=== PATIENT | male | born 1965 | race Caucasian/White ===

== ENCOUNTER 2019-12-21 14:31 | Emergency (ER) | payer OTHER ==
[2019-12-21 14:40] VITALS: BP 147/88; PULSE 94; RESP 18; TEMP 97.3
[2019-12-21] MEDS ORDERED: MUPIROCIN 2% OINT 22 GM TUBE TOPICAL STA (14:57)
--- NOTE | 2019-12-21 15:33 | XR ---
EXAMINATION TYPE: XR finger RT DATE OF EXAM: 12/21/2019 COMPARISON: NONE HISTORY: Pain after injury, splinter in skin TECHNIQUE: 3 views right fifth finger. FINDINGS: No acute displaced fracture. Joint spaces preserved right fifth finger. Overlying soft tiss ue shows no suspicious radiodense foreign body. No suspicious bony destruction is seen. IMPRESSION: As above.
--- NOTE | 2019-12-21 15:40 | ED ---
General Adult HPI - General Chief complaint: Extremity Problem,Nontraumatic Stated complaint: Finger Abscess Time Seen by Provider: 12/21/19 14:50 Source: patient, RN notes reviewed, old records reviewed Mode of arrival: ambulatory Limitations: no limitations - History of Present Illness Initial comments: 54-year-old male patient brought to ED for chief complaint of pain and swelling to distal lateral aspect of right pinky. She reports that back in August he believes he got a metal splinter in his finger. Patient reports that since then he has had persistent pain, swelling over the medial aspect of the distal phalanx. Patient reports that it does become inflamed and bleed. Denies any other complaints. Patient did go to [facility] for this complaint in October, he did not complete the antibiotics and did not follow up as recommended. Systemic: Pt denies fatigue, fever/chills, rash. Pt denies weakness, night sweats, weight loss. Neuro: Pt denies headache, visual disturbances, syncope or pre-syncope. HEENT: Pt denies ocular discharge or irritation, otalgia, rhinorrhea, pharyngitis or notable lymphadenopathy. Cardiopulmonary: Pt denies chest pain, SOB, heart palpitations, dyspnea on exertion. Abdominal/GI: Pt denies abdominal pain, n/v/d. : Pt denies dysuria, burning w/ urination, frequency/urgency. Denies new onset urinary or bowel incontinence. MSK: Pt denies myalgia, loss of strength or function in extremities. Neuro: Pt denies new onset weakness, paresthesias. - Related Data Allergies Allergy/AdvReac Type Severity Reaction Status Date / Time Penicillins Allergy Dyspnea Verified 12/21/19 14:40 Review of Systems ROS Statement: Those systems with pertinent positive or pertinent negative responses have been documented in the HPI. ROS Other: All systems not noted in ROS Statement are negative. Past Medical History Additional Past Medical History / Comment(s): back pain, neck pain History of Any Multi-Drug Resistant Organisms: None Reported Additional Past Surgical History / Comment(s): lobectomy Past Psychological History: Anxiety, Depression Smoking Status: Never smoker Past Alcohol Use History: None Reported Past Drug Use History: None Reported General Exam - General Exam Comments Initial Comments: Constitutional: NAD, AOX3, Pt has pleasant affect. HEENT: NC/AT, trachea midline, neck supple, no lymphadenopathy. Posterior pharynx non erythematous, without exudates. External ears appear normal, without discharge. Mucous membranes moist. Eyes PERRLA, EOM intact. There is no scleral icterus. No pallor noted. Cardiopulmonary: RRR, no murmurs, rubs or gallops, no JVD noted. Lungs CTAB in anterior and posterior pleitez. No peripheral edema. Abdominal exam: Abdomen soft and non-distended. Abdomen non-tender to palpation in all 4 quadrants. Bowel sounds active in LLQ. No hepatosplenomegaly. No ecchymosis Neuro: CN II-XII grossly intact. No nuchal rigidity. No raccon eyes, no dumont sign, no hemotympanum. No cervical spinal tenderness. MSK: 1 x 1 cm lesion medial aspect of distal phalanx. Mild amount of erythema. No fluctuance or discharge. Full active range of motion of digit. No flexor tenderness. No percussion tenderness. No posterior calf tenderness bilaterally, homans sign negative bilaterally. Posterior tibialis and radial pulse +2 bilaterally. Sensation intact in upper and lower extremities. Full active ROM in upper and lower extremities, 5/5 stregnth. \ Limitations: no limitations Course Vital Signs 12/21/19 14:37 Temperature 97.3 F L Pulse Rate 94 Respiratory 18 Rate Blood Pressure 147/88 O2 Sat by Pulse 96 Oximetry Medical Decision Making - Medical Decision Making 54-year-old male patient brought to ED for chief complaint of pain and swelling to distal lateral aspect of right pinky. She reports that back in August he believes he got a metal splinter in his finger. Patient reports that since then he has had persistent pain, swelling over the medial aspect of the distal phalanx. Patient reports that it does become inflamed and bleed. Denies any other complaints. Patient did go to [facility] for this complaint in October, he did not complete the antibiotics and did not follow up as recommended. Patient vital signs are stable, afebrile. Physical exam displayed: 1 x 1 cm lesion medial aspect of distal phalanx. Mild amount of erythema. No fluctuance or discharge. Full active range of motion of digit. No flexor tenderness. No percussion tenderness. Plain films displayed no acute process. There are no signs of flexor tenosynovitis. Patient will be treated with topical mupirocin ointment will follow-up with primary care provider as well as orthopedic follow-up. Case discussed with Dr. June. Disposition Clinical Impression: Superficial skin infection Disposition: HOME SELF-CARE Condition: Stable Instructions (If sedation given, give patient instructions): Cellulitis (ED) Additional Instructions: Using bag as directed. Apply ointment 3 times per day for 10 days to the a ffected area. Follow-up with primary care provider and orthopedic follow-up tomorrow. Return to ER if condition worsens. Is patient prescribed a controlled substance at d/c from ED?: No Referrals: Nonstaff,Physician [Primary Care Provider] - 1-2 days Donovan Felix DO [Doctor of Osteopathic Medicine] - 1-2 days
== END 2019-12-21 16:00 | disposition home or self-care (01) ==
LOC: EC 14:31
DX: L08.9 Local infection of the skin and subcutaneous tissue, unspecified (principal); Z88.0 Allergy status to penicillin
CPT/HCPCS: 99284

== ENCOUNTER 2019-12-29 15:14 | Observation (INO) | payer OTHER ==
--- NOTE | 2019-12-29 15:39 | ED ---
Chest Pain HPI - General Chief Complaint: Chest Pain Stated Complaint: PAMELA, Chest pain Time Seen by Provider: 12/29/19 15:34 Source: patient Mode of arrival: ambulatory Limitations: no limitations - History of Present Illness Initial Comments: 54-year-old male with history of borderline diabetes previous smoker presents emergency department today for chief complaint of chest discomfort left-sided. Patient states he has left-sided chest discomfort is more of a pressure or bruise feeling. Patient states is not reproducible to movements or palpation of the chest. Patient denies any trauma to the testicles or exertional activity. Patient states initially chest he was on off all week however today became more persistent and constant. Patient denies any history of positive stress test denies any previous heart catheterizations. Patient denies any history of hypertension. Patient states he also feels slightly short of breath. Patient denies upper respiratory symptoms he denies any fevers he denies IV drug use denies any leg swelling history of active cancer or previous pulmonary embolism or DVT. Patietn denies radiation to the back, or pain with deep inspiration. Denies hemoptysis. Patient has no additional complaints. Upon arrival he does not appears in distress. Given ASA. - Related Data Home Medications Medication Instructions Recorded Confirmed traMADol HCL [Ultram] 50 mg PO BID PRN 12/29/19 12/29/19 Allergies Allergy/AdvReac Type Severity Reaction Status Date / Time Penicillins Allergy Dyspnea Verified 12/29/19 17:42 Review of Systems ROS Statement: Those systems with pertinent positive or pertinent negative responses have been documented in the HPI. ROS Other: All systems not noted in ROS Statement are negative. EKG Findings - EKG Comments: EKG Findings:: Ventricular rate 80 bpm, MN interval 144 ms, QRS ration 104 ms, QT/QTC 354/428 ms. This is normal sinus there is incomplete right bundle-branch block. No ST elevation or depression is noted. Past Medical History Additional Past Medical History / Comment(s): back pain, neck pain History of Any Multi-Drug Resistant Organisms: None Reported Additional Past Surgical History / Comment(s): lobectomy Past Psychological History: Anxiety, Depression Smoking Status: Never smoker Past Alcohol Use History: None Reported Past Drug Use History: None Reported General Exam - General Exam Comments Initial Comments: General: The patient is awake and alert, in no distress Eye: Pupils are equal, round and reactive to light, extra-ocular movements are intact. No nystagmus. There is normal conjunctiva bilaterally. No signs of icterus. Ears, nose, mouth and throat: There are moist mucous membranes and no oral lesions. Neck: The neck is supple, there is no tenderness or JVD. Cardiovascular: There is a regular rate and rhythm. No murmur, rub or gallop is appreciated. Respiratory: Lungs are clear to auscultation, respirations are non-labored, breath sounds are equal. No wheezes, stridor, rales, or rhonchi. Gastrointestinal: Soft, non-distended, non-tender abdomen without masses or organomegaly noted. There is no rebound or guarding present. Musculoskeletal: Normal ROM, no tenderness. Strength 5/5. Sensation intact. Radial pulses equal bilaterally 2+. Neurological: A&O x 3. CN II-XII intact grossly, There are no obvious motor or sensory deficits. Coordination appears grossly intact. Speech is normal. Skin: Skin is warm and dry and no rashes or lesions are noted. NO LE edema or calf swelling. Psychiatric: Cooperative, appropriate mood & affect, normal judgment. Limitations: no limitations Course Vital Signs 12/29/19 12/29/19 12/29/19 15:27 16:00 17:00 Temperature 98.2 F Pulse Rate 97 85 79 Respiratory 18 18 18 Rate Blood Pressure 141/76 124/87 131/87 O2 Sat by Pulse 96 Oximetry 12/29/19 12/29/19 12/29/19 17:30 18:00 19:21 Temperature Pulse Rate 77 70 70 Respiratory 18 18 16 Rate Blood Pressure 120/82 116/74 112/75 O2 Sat by Pulse 99 99 96 Oximetry 12/29/19 19:23 Temperature 98.2 F Pulse Rate Respiratory Rate Blood Pressure O2 Sat by Pulse Oximetry Chest Pain MDM - MDM 54-year-old male presents for left-sided chest discomfort. Initial troponin negative. D-dimer elevated however CTA low probability for pulmonary embolism however there was noted lymphadenopathy as well as some pleural thickening patient states he has had exposure to asbestos in the past. I did discuss importance of timely follow-up to ensure that this is not metaplastic disease mesothelioma or lymphooma or other cancerous etiology. Patient will be admitted for serial troponin cardiology and internal medicine evaluation. Patient agreeable to admission. Dr. Russo accepted the admission after speaking to Dr. June. Disposition Clinical Impression: Chest pain, Shortness of breath, Lymphadenopathy, Pleural condition, unspecified Disposition: ADMITTED IP TO THIS [facility] Condition: Stable Is patient prescribed a controlled substance at d/c from ED?: No Time of Disposition: 19:10 Decision to Admit Reason: Admit from EC Decision Date: 12/29/19 Decision Time: 18:10
[2019-12-29] MEDS ORDERED: ASPIRIN 81 MG PO STA (16:00)
[2019-12-29] MEDS ORDERED: HYDROmorphone 0.5 MG/0.5 ML SYRINGE IVP STA (16:00)
--- NOTE | 2019-12-29 16:25 | XR ---
EXAMINATION TYPE: XR chest 2V DATE OF EXAM: 12/29/2019 COMPARISON: None HISTORY: 54-year-old male with chest pain and shortness of breath TECHNIQUE: PA and lateral views FINDINGS: Heart normal size. Aorta vasculature within normal limits. Biapical pleural parenchymal scarring is d emonstrated. Question right-sided thoracotomy change. Some opacity at the left base has a streaky young earance. Mild hyperinflation. No consolidation or pleural effusion seen. IMPRESSION: 1. Query prior right-sided thoracotomy change and underlying COPD. 2. Some opacity at the left base has a strandy appearance suggesting atelectasis rather than infiltra te. Clinically correlate.
[2019-12-29 16:38] LABS: INR 0.9 (<1.2); Partial Thromboplastin Time 23.3 sec (22.0-30.0); Prothrombin Time 9.8 sec (9.0-12.0)
[2019-12-29 16:41] LABS: ALT 31 U/L (4-49); AST 28 U/L (17-59); African American GFR (CKD) >90 (>60 ml/min/1.73 sqM); Albumin 4.4 g/dL (3.5-5.0); Alkaline Phosphatase 63 U/L (38-126); Anion Gap 7 mmol/L; Blood Urea Nitrogen 17 mg/dL (9-20); Calcium 9.1 mg/dL (8.4-10.2); Carbon Dioxide 28 mmol/L (22-30); Chloride 105 mmol/L (98-107); Glucose 108 mg/dL (74-99); Non-African American GFR(CKD) >90 (>60 ml/min/1.73 sqM); Potassium 4.1 mmol/L (3.5-5.1); Sodium 140 mmol/L (137-145); Total Bilirubin 0.3 mg/dL (0.2-1.3); Total Protein 7.4 g/dL (6.3-8.2)
[2019-12-29 16:49] LABS: Basophils % (A) 0 %; Eosinophils # (A) 0.1 k/uL (0-0.7); Eosinophils % (A) 2 %; HCT 44.8 % (39.0-53.0); HGB 15.1 gm/dL (13.0-17.5); Lymphocytes # (A) 1.7 k/uL (1.0-4.8); Lymphocytes % (A) 27 %; MCH 29.9 pg (25.0-35.0); MCHC 33.8 g/dL (31.0-37.0); MCV 88.5 fL (80.0-100.0); Mean Platelet Volume 8.1; Monocytes # (A) 0.5 k/uL (0-1.0); Monocytes % (A) 7 %; Neutrophils # (A) 3.9 k/uL (1.3-7.7); Neutrophils % (A) 61 %; Platelet Count 284 k/uL (150-450); RBC 5.06 m/uL (4.30-5.90); RDW 12.6 % (11.5-15.5); WBC 6.4 k/uL (3.8-10.6)
[2019-12-29] MEDS ORDERED: NITROGLYCERIN OINT 1 INCH/GM PACKET TOPICAL STA (17:28)
[2019-12-29] MEDS ORDERED: NITROGLYCERIN SL TABS 0.4 MG TAB SUBLINGUAL PRN (17:34)
--- NOTE | 2019-12-29 19:03 | CT ---
EXAMINATION TYPE: CT chest angio for PE DATE OF EXAM: 12/29/2019 COMPARISON: Radiograph same day HISTORY: 54-year-old male chest pain, SOB, elevated d-dimer TECHNIQUE: Contiguous axial scanning of the chest performed with IV Contrast, patient injected with 9 5cc mL of Isovue 370. Coronal/sagittal MIP reconstructions performed. CT DLP: 546.3 mGycm Automated exposure control for dose reduction was used. FINDINGS: Heart normal size without pericardial effusion. No flattening of the interventricular septum. Aorta normal caliber with a conventional branching anatomy. There is mediastinal lymphadenopathy. Right anterior tracheal measuring 2.4 x 1.3 cm. AP window measuring 1.3 cm short axis. Right hilum measuring 1.4 cm. Left hilum measuring 8 mm. Subcarinal nonenlarged measuring 1 cm. Some surgical clips are present along the posterior mediastinum near the subcarinal level. Right-sided thoracotomy change. Satisfactory opacification of the pulmonary arterial system with breathing motion artifact. No defini te pulmonary embolus. Asymmetric right greater than left mild to moderate gynecomastia. Scattered plaque-like pleural thickening right upper to mid lung, for example, posteriorly on image 5 4 and image 39. Mild to moderate upper lung emphysema. No consolidation or pleural effusion Severe hepatic steatosis. Fatty sparing along the gallbladder fossa. Bones: No osseous destructive process seen. Biapical pleural-parenchymal scarring. IMPRESSION: 1. SOME LIMITATIONS DUE TO MILD BREATHING MOTION. NO DEFINITE PULMONARY EMBOLUS. 2. MEDIASTINAL LYMPHADENOPATHY MEASURING UP TO 2.4 X 1.3 CM. PROMINENT HILAR LYMPH NODES WELL DANIEL URING UP TO 1.4 CM ON THE RIGHT. CORRELATE FOR ANY KNOWN UNDERLYING DIAGNOSIS GIVEN PRIOR RIGHT-SIDED THORACOTOMY AND SOME SURGICAL CLIPS ADJACENT TO THE SUBCARINAL LEVEL. SARCOID, SYSTEMIC FUNGAL/MYCOB ACTERIAL INFECTIONS, CONNECTIVE TISSUE DISORDERS, LYMPHOMA, AND METASTATIC DISEASE ARE IN THE DIFFERE NTIAL AT THIS TIME. 3. 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 SOME SCATTERED PLAQUE-LIKE PLEURAL THICKENING IN THE RIGHT UPPER AND MIDLUNG. IF NO INTERVENTION AT THIS TIME, THE LYMPHADENOPATHY AND PLEURAL THICKEN ING SHOULD BE REASSESSED IN 3 MONTHS. 4. SEVERE HEPATIC STEATOSIS.
[2019-12-29 23:34] VITALS: RESP 18
--- NOTE | 2019-12-30 00:14 | HP ---
HISTORY AND PHYSICAL 54-year-old white male, borderline diabetes, previous smoker, came to the hospital with left-sided chest pain, shortness of breath over the past 3-4 days, not reproducible with movement or palpation of the chest. He has been under a lot of stress lately, taking care of his neighbors food needs during the Covid crisis. Denies any trauma. Denies any history of heart disease or any stress testing or any heart problems or strokes. Does not do IV drugs. Does not have any history of cancer or pulmonary embolism. He had some kind of surgery on his neck when he did drug abuse 10 years ago. He was given aspirin and sublingual nitrogen. HOME MEDICATIONS: Tramadol p.r.n. ALLERGIES: PENICILLIN. REVIEW OF SYSTEMS: Fourteen-point review of systems negative except for what is mentioned in HPI. EKG sinus rhythm. PAST MEDICAL HISTORY: Anxiety, depression, back pain, neck pain. CT scan of the chest showed significant lymphadenopathy of the chest. PHYSICAL EXAMINATION: Vital signs stable. Afebrile. Cardiovascular S1, S2. LUNGS: Transmitted upper airway sounds. Hematology negative Homans. Psych fair mood and affect. NEUROLOGIC: Alert orient x3. Ophthalmologic: Pupils equal, round, reactive. ASSESSMENT AND PLAN: 1. Atypical chest pain rule out myocardial fraction. 2. Lymphadenopathy. 3. Follow up in next 24 to 48 hours. 4. Pulmonary consult for pleural reaction, lymphadenopathy. MMODL / IJN: [id number] /
[2019-12-30 05:15] LABS: Cholesterol 181 mg/dL (<200); HDL Cholesterol 33 mg/dL (40-60); Triglycerides 401 mg/dL (<150)
[2019-12-30] MEDS ORDERED: ASPIRIN 325 MG TAB PO SCH (09:00)
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
[2019-12-30 17:00] VITALS: BP 127/82; PULSE 76; TEMP 97.9
== END 2019-12-30 18:26 | disposition home or self-care (01) ==
LOC: EC 15:14 → 3SCARD 17:34
PROVIDERS: ADMIT Family Medicine; ATTEND Family Medicine
DX: R07.89 Other chest pain (principal); J43.9 Emphysema, unspecified; R79.89 Other specified abnormal findings of blood chemistry; R59.0 Localized enlarged lymph nodes; Z03.818 Encounter for observation for suspected exposure to other biological agents ruled out; K76.0 Fatty (change of) liver, not elsewhere classified; R73.03 Prediabetes; F41.9 Anxiety disorder, unspecified; F32.9 Major depressive disorder, single episode, unspecified; M54.9 Dorsalgia, unspecified; M54.2 Cervicalgia; Z79.891 Long term (current) use of opiate analgesic; Z88.0 Allergy status to penicillin; Z77.090 Contact with and (suspected) exposure to asbestos; Z90.2 Acquired absence of lung [part of]; Z87.828 Personal history of other (healed) physical injury and trauma; Z91.5 Personal history of self-harm; Z87.891 Personal history of nicotine dependence; Z87.898 Personal history of other specified conditions; I45.10 Unspecified right bundle-branch block
CPT/HCPCS: 93005 ×2; 96374; 99285; 36415; 85379; 83880; 80061; 80053; 83735; 84484 ×2; 85025; 85610; 85730; 87635; 71046; 71275; G0378 ×2; J1170; Q9967